=== PATIENT | female | born 1965 | race Caucasian/White ===

== ENCOUNTER 2016-09-21 22:03 | Emergency (ER) | payer SELFPAY ==
[~2016-09-21] VITALS: Ht 152.4 cm; Wt 70.0 kg
[2016-09-21 22:07] VITALS: Ht 152.4 cm; Wt 70.0 kg
[2016-09-21] MEDS ORDERED: ONDANSETRON 4 MG INJ IV STA (22:19)
[2016-09-21] MEDS ORDERED: morphine 2 MG INJ IV ONE (22:30)
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
[2016-09-22] MEDS ORDERED: morphine 2 MG INJ IV ONE
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
[2016-09-22] MEDS ORDERED: IBUP-1542 PO (00:55)
[2016-09-22] MEDS ORDERED: HYDR-902 PO (00:56)
[2016-09-22 01:16] VITALS: BP 122/78; PULSE 67; RESP 18
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
== END 2016-09-22 01:21 | disposition home or self-care (01) ==
LOC: E/R 22:03
DX: S22.20XA Unspecified fracture of sternum, initial encounter for closed fracture (principal); S39.92XA Unspecified injury of lower back, initial encounter; S79.911A Unspecified injury of right hip, initial encounter; V49.50XA Passenger injured in collision with unspecified motor vehicles in traffic accident, initial encounter
CPT/HCPCS: 71250; 72125; 72128; 72131; 72192; 73550; J2270; J2405; 96374; 96375; 96376